=== PATIENT | female | born 1990 | race American Indian/Alaskan Native ===

== ENCOUNTER 2019-12-09 09:43 | Emergency (ER) | payer SELFPAY ==
[2019-12-09 09:58] VITALS: BP 158/80
== END 2019-12-09 14:45 | disposition left against medical advice (07) ==
LOC: ED 09:43
DX: L98.9 Disorder of the skin and subcutaneous tissue, unspecified (principal); Z53.21 Procedure and treatment not carried out due to patient leaving prior to being seen by health care provider

== ENCOUNTER 2022-03-20 11:29 | Emergency (ER) | payer MEDICAID ==
[2022-03-20 11:39] VITALS: BP 150/105
--- NOTE | 2022-03-23 18:43 | Electrocardiograph Report ---
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
== END 2022-03-20 16:30 | disposition left against medical advice (07) ==
LOC: ED 11:29
DX: R07.9 Chest pain, unspecified (principal); Z53.21 Procedure and treatment not carried out due to patient leaving prior to being seen by health care provider
CPT/HCPCS: 93005